=== PATIENT | male | born 1965 | race Hispanic/Latino ===

== ENCOUNTER → 2024-09-18 | Day surgery (SDC) | payer MEDICARE ==
[~2024-09-18] MED LIST: ASPIRIN EC81 MG PO; ATORVASTATIN CA10 MG PO; LIDOCAINE HCL 2% LOCAL INJ 5 ML SDV VIAL INJ ONE; MIDAZOLAM HCL 2 MG/2 ML VIAL ONE; OMEGA 3 1,0001 EACH PO; PROPOFOL IV EMULSION 10 MG/ML 20 ML VIAL ONE
[2024-09-18] MEDS: LACTATED RINGER'S 1,000 ML ONE (09:46)
[2024-09-18 11:28] VITALS: TEMP 97.2
[2024-09-18 12:00] VITALS: BP 121/89; PULSE 64; RESP 16; O2SAT 96
== END ==
LOC: OR 08:14
PROVIDERS: ATTEND Internal Medicine Gastroenterology
DX: Z12.11 Encounter for screening for malignant neoplasm of colon (principal); D12.3 Benign neoplasm of transverse colon; K64.8 Other hemorrhoids; Z79.82 Long term (current) use of aspirin; Z86.0100 Personal history of colon polyps, unspecified; Z01.810 Encounter for preprocedural cardiovascular examination
CPT/HCPCS: 45385; 88305; 93005; J2003; J2250